=== PATIENT | female | born 1925 | race Caucasian/White ===

== ENCOUNTER 2016-12-20 09:30 | Emergency (ER) | payer MEDICARE, BC ==
[~2016-12-20] VITALS: Ht 152.4 cm; Wt 53.0 kg
[2016-12-20 09:37] VITALS: BP 111/67; PULSE 83; RESP 16; TEMP 99; O2SAT 96
[2016-12-20 09:59] VITALS: RESP 16; O2SAT 97
[2016-12-20] MEDS ORDERED: ALUMINUM/MAGNESIUM/SIMETH 30 ML CUP PO ONE (10:00)
[2016-12-20] MEDS ORDERED: LIDOCAINE VISCOUS 2% SOLN 15 ML UDC PO ONE (10:00)
[2016-12-20] MEDS ORDERED: SODIUM CHLORIDE 0.9% FLUSH 10 ML FLUSH IV FLUSH PRN (10:00)
[2016-12-20] MEDS ORDERED: ASPI81TA81 (10:06)
[2016-12-20] MEDS ORDERED: LOMO2.5T PO (10:06)
[2016-12-20] MEDS ORDERED: ALIG4CAP PO (10:06)
[2016-12-20] MEDS ORDERED: GABA100C4 PO (10:06)
[2016-12-20] MEDS ORDERED: COLE1TAB2 PO (10:06)
[2016-12-20] MEDS ORDERED: TIMO0.5S30 EACH EYE (10:06)
[2016-12-20] MEDS ORDERED: AMLO10TA2 PO (10:06)
[2016-12-20] MEDS ORDERED: DICY10 PO (10:06)
[2016-12-20] MEDS ORDERED: PROT40TA PO (10:06)
[2016-12-20 10:55] LABS: BLOOD, URINE NEG (NEG); GLUCOSE,URINE NEG (NEG); KETONE, URINE NEG (NEG); NITRITE,URINE NEG (NEG); PH, URINE 5.5 (5.0-8.5)
[2016-12-20 10:57] LABS: AUTOMATED NEUTROPHIL # 4.9 TH/MM3 (1.8-7.7); BASOPHIL % 0.6 % (0.0-2.0); EOSINOPHIL # 0.1 TH/MM3 (0-0.4); EOSINOPHIL % 1.2 % (0.0-4.0); HEMATOCRIT 39.2 % (35.0-46.0); HEMO FLAGS DIFF FINAL; LYMPH % 17.3 % (9.0-44.0); LYMPHOCYTE # 1.2 TH/MM3 (1.0-4.8); MEAN CORPUSCULAR HEMOGLOBIN 29.5 PG (27.0-34.0); MONO % 14.1 % (0.0-8.0); NEUT % 66.8 % (16.0-70.0); PLATELET COUNT 170 TH/MM3 (150-450); RED BLOOD COUNT 4.26 MIL/MM3 (4.00-5.30); RED CELL DISTRIBUTION WIDTH 12.3 % (11.6-17.2); WHITE BLOOD COUNT 7.2 TH/MM3 (4.0-11.0)
[2016-12-20 10:59] LABS: METHOD OF COLLECTION CLEAN CATCH; URINE COLOR STRAW (YELLW/STRAW)
[2016-12-20 11:01] LABS: CHLORIDE 108 MEQ/L (98-107); POTASSIUM 3.6 MEQ/L (3.5-5.1); SODIUM (NA) 142 MEQ/L (136-145)
--- NOTE | 2016-12-20 11:03 | PD ---
HPI Chief Complaint: GI Complaint Time Seen by Provider: 09:42 Travel History International Travel<30 days: No Contact w/Intl Traveler<30days: No Traveled to known affect area: No History of Present Illness HPI This is an 89-year-old female who has a history of CABG 4 years ago and esophageal reflux who presents to the emergency department with 2 days of upper abdominal discomfort feeling like a band is being drawn around her abdomen associated with an acid-like feeling that goes up her chest, radiating to both shoulders. She says the pain was worse last night and kept her up from sleep. She got some relief when she would sit up. She took a pantoprazole this morning but her symptoms persisted. She denies any fevers or chills. She denies any vomiting. She denies any shortness of breath, nausea or diaphoresis. PFSH Past Medical History Cancer: Yes Cardiac Catheterization: Yes Chest Pain: Yes Coronary Artery Disease: Yes Diminished Hearing: No Diverticulitis: Yes GERD: Yes Hypertension: Yes Medical other: Yes (MACULAR DEGENERATION) Myocardial Infarction: Yes Influenza Vaccination: Yes Past Surgical History Appendectomy: Yes Cholecystectomy: Yes Coronary Artery Bypass Graft: Yes Coronary Stent: Yes Genitourinary Surgery: Yes (PROLAPSED BLADDER REPAIR) Hysterectomy: Yes Social History Alcohol Use: Yes Tobacco Use: No Substance Use: No Allergies-Medications (Allergen,Severity, Reaction): Coded Allergies: Benzodiazepines (Verified Allergy, Unknown, 12/20/16) Morphine (Verified Allergy, Unknown, 12/20/16) Sulfa (Verified Allergy, Unknown, 12/20/16) Reported Meds & Prescriptions Reported Meds & Active Scripts Active Reported Lomotil (Diphenoxylate-Atropine) 2.5-0.025 Mg Tab 1 Tab PO Q6H PRN Bentyl (Dicyclomine HCl) 10 Mg Cap 10 Mg PO QID Gabapentin 100 Mg Cap 100 Mg PO BID Aspir-81 (Aspirin) 81 Mg Tabdr Colestipol (Colestipol HCl) 1 Gm Tab 2 Gm PO BID Amlodipine (Amlodipine Besylate) 10 Mg Tab 10 Mg PO DAILY Align (Lactobacillus Rhamnosus (GG)) 4 Mg Cap 4 Mg PO DAILY Protonix (Pantoprazole Sodium) 40 Mg Tab 40 Mg PO DAILY Timolol Opth Drops 0.5 % Soln 1 Drop EACH EYE BID Review of Systems Except as stated in HPI: all other systems reviewed are Neg Physical Exam Narrative GENERAL:Well appearing, no acute distress SKIN: Focused skin assessment warm and dry. HEAD: Atraumatic. Normocephalic. EYES: Pupils equal and round. No injection or drainage. ENT: Moist mucous membranes NECK: Trachea midline. CARDIOVASCULAR: Regular rate and rhythm. No murmur appreciated. RESPIRATORY: Clear to auscultation. Breath sounds equal bilaterally. GASTROINTESTINAL: Abdomen soft, tender to palpation in the epigastrium with no rebound or guarding. MUSCULOSKELETAL: No obvious deformities. NEUROLOGICAL: Awake and alert. No obvious cranial nerve deficits. Moving all extremities. PSYCHIATRIC: Appropriate mood and affect; insight and judgment normal. Data Data Last Documented VS Vital Signs Date Time Temp Pulse Resp B/P Pulse Ox O2 Delivery O2 Flow Rate FiO2 12/20/16 09:59 16 97 Room Air 12/20/16 09:37 99.0 83 111/67 Orders Complete Blood Count With Diff (12/20/16 09:56) Comprehensive Metabolic Panel (12/20/16 09:56) Lipase (12/20/16 09:56) Urinalysis - C+S If Indicated (12/20/16 09:56) Ct Abd/Pel W Iv Contrast(Rout) (12/20/16 09:56) Iv Access Insert/Monitor (12/20/16 09:56) Ecg Monitoring (12/20/16 09:56) Oximetry (12/20/16 09:56) Sodium Chloride 0.9% Flush (Ns Flush) (12/20/16 10:00) Electrocardiogram (12/20/16 09:56) Al-Mag Hy-Si 40-40-4 Mg/Ml Liq (Mag-Al P (12/20/16 10:00) Lidocaine 2% Viscous (Xylocaine 2% Visco (12/20/16 10:00) Troponin I (12/20/16 09:56) Iohexol 350 Inj (Omnipaque 350 Inj) (12/20/16 11:42) Labs Laboratory Tests Test 12/20/16 12/20/16 10:20 10:40 White Blood Count 7.2 TH/MM3 Red Blood Count 4.26 MIL/MM3 Hemoglobin 12.6 GM/DL Hematocrit 39.2 % Mean Corpuscular Volume 92.0 FL Mean Corpuscular Hemoglobin 29.5 PG Mean Corpuscular Hemoglobin 32.0 % Concent Red Cell Distribution Width 12.3 % Platelet Count 170 TH/MM3 Mean Platelet Volume 8.6 FL Neutrophils (%) (Auto) 66.8 % Lymphocytes (%) (Auto) 17.3 % Monocytes (%) (Auto) 14.1 % Eosinophils (%) (Auto) 1.2 % Basophils (%) (Auto) 0.6 % Neutrophils # (Auto) 4.9 TH/MM3 Lymphocytes # (Auto) 1.2 TH/MM3 Monocytes # (Auto) 1.0 TH/MM3 Eosinophils # (Auto) 0.1 TH/MM3 Basophils # (Auto) 0.0 TH/MM3 CBC Comment DIFF FINAL Differential Comment Sodium Level 142 MEQ/L Potassium Level 3.6 MEQ/L Chloride Level 108 MEQ/L Carbon Dioxide Level 25.8 MEQ/L Anion Gap 8 MEQ/L Blood Urea Nitrogen 17 MG/DL Creatinine 0.72 MG/DL Estimat Glomerular Filtration 76 ML/MIN Rate Random Glucose 105 MG/DL Calcium Level 8.6 MG/DL Total Bilirubin 0.4 MG/DL Aspartate Amino Transf 26 U/L (AST/SGOT) Alanine Aminotransferase 35 U/L (ALT/SGPT) Alkaline Phosphatase 74 U/L Troponin I LESS THAN 0.02 NG/ML Total Protein 6.7 GM/DL Albumin 3.5 GM/DL Lipase 257 U/L Urine Collection Type CLEAN CATCH Urine Color STRAW Urine Turbidity CLEAR Urine pH 5.5 Urine Specific [place] 1.005 Urine Protein NEG mg/dL Urine Glucose (UA) NEG mg/dL Urine Ketones NEG mg/dL Urine Occult Blood NEG Urine Nitrite NEG Urine Bilirubin NEG Urine Leukocyte Esterase TRACE Urine RBC 0-3 /hpf Urine WBC 0-2 /hpf Urine Squamous Epithelial 0-5 /hpf Cells Microscopic Urinalysis Comment CULT NOT INDICATED Urine Collection Time 10:40 [facility] Medical Decision Making Medical Screen Exam Complete: Yes Emergency Medical Condition: Yes Interpretation(s) Afebrile, no tachycardia, normotensive No leukocytosis Electrolytes are reassuring Troponin is normal Lipase is normal EKG: Normal sinus rhythm with no ST changes Lipase is normal CT abdomen and pelvis: Extensive atherosclerotic vascular disease Differential Diagnosis Gastritis, GERD, atypical angina, gastric outlet obstruction, mesenteric ischemia Narrative Course This is an 89-year-old female who has a history of CABG she presents to the emergency department with abdominal discomfort and a sense of acid coming up her chest all night. Her clinical symptoms are very suggestive of GERD and possible gastritis. I was concerned given her history of coronary artery disease. An EKG was performed which was nonischemic. Labs are performed which were unremarkable. CT abdomen and pelvis was obtained which demonstrates diffuse atherosclerotic disease but no etiology of the patient's symptoms. I don't think she has mesenteric ischemia as she is quite comfortable and well- appearing. She was given a GI cocktail and her symptoms improved. We had along conversation regarding ruling out acute coronary syndrome. I explained to her that if we wanted to definitively rule out acute coronary syndrome she would need to be observed in the hospital for serial cardiac enzymes and stress test. She really doesn't want to stay in the hospital because she is from [place] and she's far from home. 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 I think this is reasonable and I a in my heart think this is most likely gastritis and GERD. Patient will be discharged on Carafate and an H2 cricket. She was instructed to follow-up with her primary care physician and pairer substandard as soon as possible for a stress test. She was provided copies of her results and told to return to an emergency department immediately if her symptoms worsen. Diagnosis Primary Impression: Abdominal pain Qualified Code: R10.13 - Epigastric pain Patient Instructions: General Instructions Additional Instructions: If you develop severe or worsening abdominal pain, chest pain, shortness of breath, dizziness, nausea or sweating, fever>100.4, persistent vomiting or inability to eat or drink return to the emergency department immediately. It is very important that you follow-up with your pairer substandard as soon as possible for a stress test. Med/Other Pt SpecificInfo: Prescription(s) given Scripts Sucralfate Liq (Carafate Liq)1 Gm/10 Ml Susp1 Gm PO TID #900 ML Ref 0 on empty stomach Prov:Jailyn Jeffries MD 12/20/16 Ranitidine 150 Mg [id number] Mg PO BID #60 TAB Ref 0 Prov:Jailyn Jeffries MD 12/20/16 Disposition: 01 DISCHARGE HOME Condition: Stable Jailyn Jeffries MD December 20, 2016 11:03
[2016-12-20 11:04] LABS: COMMENT (UR) CULT NOT INDICATED; CULTURE IF INDICATED CULT NOT INDICATED; RBC, URINE 0-3 /hpf (0-3); SQUAMOUS EPITHELIAL CELL URINE 0-5 /hpf (0-5); WBC, URINE 0-2 /hpf (0-5)
[2016-12-20 11:06] LABS: ANION GAP 8 MEQ/L (5-15); BICARBONATE 25.8 MEQ/L (21.0-32.0); BLOOD UREA NITROGEN 17 MG/DL (7-18)
[2016-12-20 11:08] LABS: ALT (GPT) 35 U/L (10-53)
[2016-12-20 11:09] LABS: AST (GOT) 26 U/L (15-37); GLOMERULAR FILTRATION RATE 76 ML/MIN (>89)
[2016-12-20 11:10] LABS: TOTAL BILIRUBIN ADULT 0.4 MG/DL (0.2-1.0)
[2016-12-20 11:11] LABS: ALKALINE PHOSPHATASE 74 U/L (45-117)
[2016-12-20] MEDS ORDERED: IOHEXOL 350 MG/ML 10 ML VIAL (for RAD DIAG) IV ONE (11:42)
[2016-12-20 12:00] VITALS: BP 110/72; PULSE 70; RESP 18; O2SAT 98
--- NOTE | 2016-12-20 12:00 | RADHPO ---
EXAM DATE/TIME: 12/20/2016 11:21 [facility] COMPARISON: No previous studies available for comparison. INDICATIONS : Generalized abdominal pain and reflux. IV CONTRAST: 70 cc Omnipaque 350 (iohexol) IV ORAL CONTRAST: No oral contrast ingested. RADIATION DOSE: 9.8 CTDIvol (mGy) MEDICAL HISTORY : Cardiovascular disease. Hypertension. SURGICAL HISTORY : Hysterectomy. Cholecystectomy. Appendectomy. CABG ENCOUNTER: Initial ACUITY: 1 day PAIN SCALE: 5/10 LOCATION: Abdomen TECHNIQUE: Volumetric scanning of the abdomen and pelvis was performed. Using automated exposure control and ad justment of the mA and/or kV according to patient size, radiation dose was kept as low as reasonably achievable to obtain optimal diagnostic quality images. FINDINGS: Lung bases are clear. Moderate coronary artery calcifications are noted. There is no pericardial ef fusion. The liver is free of focal defects. Spleen, pancreas and adrenals unremarkable. There is no evidence for hiatal hernia. There is symmetrical renal function without evidence for renal mass. Moderate vascular calcifications are noted without aneurysmal dilatation. In the pelvis there are no inflammatory changes evident. Review of bone windows reveals degenerative changes. Degenerative changes are most notable in both SI joints and at L5-S1. CONCLUSION: I do not see an etiology for patient's generalized abdominal pain. Extensive atherosclerotic vascula r disease is noted. There is no abscess, free air or obstruction. Lev Gonzales MD FACR on December 20, 2016 at 11:49 Board Certified Radiologist. This report was verified electronically.
[2016-12-20] MEDS ORDERED: CARA1SUS3 PO (12:31)
[2016-12-20] MEDS ORDERED: RANI150T PO (12:31)
--- NOTE | 2016-12-21 12:08 | EKG ---
Date Performed: 12/20/2016 Time Performed: 10:07:40 PTAGE: 89 years EKG: Sinus rhythm Left ventricular hypertrophy Lateral ST-T changes are probably due to ventricular hypertrophy Abnorm al ECG NO PREVIOUS TRACING DOCTOR: Ward Wilkerson Interpretating Date/Time 12/21/2016 12:07:00
== END 2016-12-20 12:49 | disposition home or self-care (01) ==
LOC: PHED 09:30
DX: R10.13 Epigastric pain (principal); I25.10 Atherosclerotic heart disease of native coronary artery without angina pectoris; K21.9 Gastro-esophageal reflux disease without esophagitis; I10 Essential (primary) hypertension; I25.2 Old myocardial infarction; Z95.1 Presence of aortocoronary bypass graft; Z79.82 Long term (current) use of aspirin; Z79.899 Other long term (current) drug therapy
CPT/HCPCS: 74177; 80053; 81001; 83690; 84484; 85025; 93005; 99285; Q9967